=== PATIENT | male | born 1995 | race African-American/Black ===

== ENCOUNTER 2021-10-30 21:36 | Emergency (ER) | payer OTHER, SELFPAY ==
[2021-10-30 21:38] VITALS: BP 109/70; PULSE 68; RESP 20; TEMP 36.6; O2SAT 100
[2021-10-30 22:15] VITALS: BP 116/87; PULSE 71; RESP 18; O2SAT 100
--- NOTE | 2021-10-30 23:08 | ED.EYEPROB ---
HPI - Eye Problem General Chief complaint: Eye Problems Stated complaint: eye complaint Time Seen by Provider: 10/30/21 22:29 History of Present Illness HPI Narrative: 26-year-old male presents emergency room secondary to blurred vision to his left eye. States been going on for about a week. He is scheduled to see an bread wrapping machine feeder tomorrow. However he felt like is getting worse and really feels like he needs to see an retail product demo specialist. 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 Denies any discharge from his eye. Denies any pain associated to the eye. Related Data Allergies Allergy/AdvReac Type Severity Reaction Status Date / Time No Known Allergies Allergy Verified 10/30/21 22:17 Review of Systems Review of Systems: CONSTITUTIONAL: Denies fever, chills, or sweats. EYES: Blind in his right eye. A lot of redness to both of his eyes predominantly the left eye at this time. Has some blurred vision from his left eye. ENT: Denies rhinorrhea, congestion, sore throat, or otalgia. CARDIOVASCULAR: Denies chest pain, palpitations, or edema. RESPIRATORY: Denies cough or dyspnea. GASTROINTESTINAL: Denies abdominal pain, nausea, vomiting, or diarrhea. GENITOURINARY: Denies dysuria or hematuria. SKIN: Denies rash or itching. MUSCULOSKELETAL: Denies back pain, joint pain, or myalgia. NEUROLOGIC: Denies headache, numbness, or weakness. PSYCHIATRIC: Denies anxiety or depression. [facility] Past Medical History Medical History (Updated 10/30/21 @ 23:09 by Shailesh Headley DO) Blindness of right eye Social History Social History (Updated 10/30/21 @ 23:09 by Shailesh Headley DO) Occupation/Education: student Exam Narrative: APPEARANCE: Well appearing, no pain or distress, well-nourished. Head Normocephalic and atraumatic. EYES: PERRLA/EOMI,redness noted throughout the sclera on both eyes greater on the left compared to the right. The inferior portion of the left cornea noted to have several small opacifications. Patient states that these have been here for a long time. NOSE: Normal with no drainage EARS:TMS clear with Cui, with good light reflex. THROAT: Pharynx clear, no exudate. NECK: Supple. No adenopathy, no masses. RESPIRATORY: Airway patent, respirations nonlabored. Clear to auscultation bilaterally, no rales, rhonchi, wheezing. CARDIOVASCULAR: Regular rate and rhythm without murmurs, rubs, or gallops. ABDOMINAL: Soft, nontender, nondistended, no hepatosplenomegaly Musculoskeletal: Moves all extremities. Strength/ROM intact, No edema, No calf tenderness. NEURO: Alert. Cranial nerves II through XII intact. Normal gait. Good coordination. Nonfocal examination. SKIN:: Warm, dry. Normal Color PSYCHIATRIC: Normal affect/mood, normal interaction Course Vital Signs Vital signs: Vital Signs Temperature 97.8 F 10/30/21 21:38 Pulse Rate 68 10/30/21 21:38 Respiratory Rate 20 10/30/21 21:38 Blood Pressure 109/70 10/30/21 21:38 Pulse Oximetry 100 10/30/21 21:38 Oxygen Delivery Room Air 10/30/21 21:38 Temperature 97.8 F 10/30/21 21:38 Pulse Rate 71 10/30/21 22:15 Respiratory Rate 18 10/30/21 22:15 Blood Pressure 116/87 10/30/21 22:15 Pulse Oximetry 100 10/30/21 22:15 Oxygen Delivery Room Air 10/30/21 21:38 MDM - Eye Problem MDM Narrative Medical decision making narrative: I called [facility] transfer line and made arrangements for the patient to have a same-day appointment tomorrow at the ophthalmology clinic. Gave him the phone number to call and tell them that he was seen in the emergency room and referred for same-day appointment so he can get the appointment scheduled. Discharge Plan Discharge Clinical Impression: Acute iritis, Blurred vision, left eye, Blind right eye Patient Disposition: Home, Self-Care Condition: Stable Instructions: Antibiotic Form, Iritis (ED) Additional
== END 2021-10-30 23:26 | disposition home or self-care (01) ==
PROVIDERS: Emergency Provider Emergency Medicine
DX: H53.8 Other visual disturbances (principal); H20.00 Unspecified acute and subacute iridocyclitis; H54.61 Unqualified visual loss, right eye, normal vision left eye
CPT/HCPCS: 99282

== ENCOUNTER 2021-11-01 14:00 | Outpatient (CLI) | payer OTHER, SELFPAY ==
[2021-11-01 14:29] LABS: Basophils Percent Auto 0.6 % (0.2-1.2); Eosinophils Absolute Auto 0.1 K/mm3 (0-0.3); Eosinophils Percent Auto 1.7 % (0-4.4); Hemoglobin 14.1 g/dL (14.0-18.0); Immature Granulocyte Absolute 0.05 K/mm3 (0.00-0.031); Immature Granulocyte Percent A 0.9 % (0-0.5); Immature Platelet Fraction Pct 8.6 % (0.9-11.2); Lymphocytes Absolute Auto 1.62 K/mm3 (0.9-3.2); Lymphocytes Percent Auto 30.3 % (18.3-44.2); Mean Corpuscular Volume 79.9 fl (80-100); Mean Platelet Volume 13.2 fl (7.4-10.4); Monocytes Absolute Auto 0.4 K/mm3 (0.1-0.6); Monocytes Percent Auto 7.1 % (2.6-8.5); Neutrophils Absolute Auto 3.2 K/mm3 (1.3-6.7); Neutrophils Percent Auto 59.4 % (45.5-73.1); Platelet Count Result 185 k/mm3 (150-375); Red Blood Count 5.88 M/mm3 (4.6-6.20); White Blood Count 5.4 K/mm3 (4.5-10.0)
[2021-11-04 12:16] LABS: NIL >8.00 IU/mL; Quantiferon TB Plus, 1T INDETERMINATE (NEGATIVE); TB2-NIL 0.08 IU/mL
[2021-11-04 21:39] LABS: Treponema pallidum Ab FTA ABS Nonreactive (Nonreactive)
[2021-11-06 12:03] LABS: Angiotensin Converting Enzyme 20.8 U/L (9-67)
== END 2021-11-01 14:01 | disposition home or self-care (01) ==
PROVIDERS: Visit Provider Ophthalmology
DX: H44.113 Panuveitis, bilateral (principal)
CPT/HCPCS: 36415; 82164; 85025; 85055; 86480; 86780